=== PATIENT | female | born 1960 | race Caucasian/White ===

== ENCOUNTER 2016-08-25 11:01 | Inpatient (IN) | payer MEDICARE, SELFPAY ==
[2016-08-14 14:01] LABS: BASOPHILS 0.2 %; BASOPHILS ABSOLUTE 0.01 10/3/uL (0.0-0.16); EOSINOPHILS 7.1 %; EOSINOPHILS ABSOLUTE 0.35 10/3/uL (0.0-0.53); HEMATOCRIT 33.3 % (36.0-48.0); HEMOGLOBIN 10.3 g/dL (12.0-16.0); IMMATURE GRANULOCYTES 0.2 %; IMMATURE GRANULOCYTES ABSOLUTE 0.01 10/3/uL (0.0-0.11); LYMPHOCYTES ABSOLUTE 1.09 10/3/uL (0.67-4.30); MANUAL DIFF NO %; MEAN CORPUS HGB CONC 30.9 g/dL (32.0-36.0); MEAN CORPUSCULAR HEMOGLOB 24.9 pg (26.0-34.0); MEAN CORPUSCULAR VOLUME 80.6 fL (80-100); MEAN PLATELET VOLUME 9.2 fL (9.2-13.0); MONOCYTES 7.3 %; MONOCYTES ABSOLUTE 0.36 10/3/uL (0.21-1.20); NEUTROPHILS 63.2 %; NEUTROPHILS ABSOLUTE 3.13 10/3/uL (2.02-8.40); PLATELET COUNT 257 10/3/uL (150-400); RBC DISTRIBUTION WIDTH 16.6 % (12.0-16.0); RED CELL COUNT 4.13 10/6/uL (4.0-5.6)
[2016-08-14 14:11] LABS: BUN (BLOOD UREA NITROGEN) 8 MG/DL (6-23); CALCIUM, SERUM 9.1 MG/DL (8.5-10.4); CHLORIDE, SERUM 102 MMOL/L (96-112); CO2 (CARBON DIOXIDE) 29 MMOL/L (24-34); CREATININE 0.74 MG/DL (0.55-1.02); GFR AFRICAN AMERICAN 105 ML/MIN (>=60); GFR NON AFRICAN AMERICAN 91 ML/MIN (>=60); GLUCOSE, SERUM 105 MG/DL (60-99); POTASSIUM, SERUM 3.8 MMOL/L (3.5-5.3); SODIUM, SERUM 139 MMOL/L (135-148)
--- NOTE | ~2016-08-25 | OP ---
Record Of Operation [facility] [address] [place]. [address] NAME: YOGESH AUGUSTE OCTOBER : [birth year] STATUS : ADM IN PAT#: [id number] AGE: 55 ADM/REG DATE : 08/25/16 MR#: [id number] REPORT SERV DATE: 09/03/16 DICTATED BY: KAYY DENISE DATE: 09/03/16 REPORT STATUS : Draft TRANSCRIBED BY: CHIP DATE: 09/03/16 DATE OF PROCEDURE: 09/03/2016 PREOPERATIVE DIAGNOSIS: Necrosis of left axillary latissimus dorsi flap. POSTOPERATIVE DIAGNOSIS: Necrosis of left axillary latissimus dorsi flap. PROCEDURE: 1. Excisional debridement of skin, subcutaneous tissue, and muscle of the latissimus dorsi flap. 2. Placement of negative pressure wound dressing to left axilla. SURGEON: Kayy Denise M.D. RESIDENT SURGEON: Eulogio Sylvester. ANESTHESIA: General endotracheal. COMPLICATIONS: None. ESTIMATED BLOOD LOSS: Minimal. DESCRIPTION OF PROCEDURE: The patient was marked in the preoperative area. Consent was obtained. She was identified and taken to the operating room. She underwent general anesthesia. Her axilla and left thigh were prepped and draped in usual sterile fashion. A scalpel was used to excise the nonviable skin paddle from the latissimus dorsi flap. The underlying muscle was evaluated. The distal half of the muscle was necrotic, with no blood flow. This was excised with a scissor. The muscle was slowly excised until bleeding viable muscle and contractile muscle was encounter more proximally. Cultures were obtained and the wound was irrigated copiously with Hibiclens solution. Next, the remaining latissimus muscle was sutured to the deltoid muscle to provide coverage over the axillary vessels. A medium sized wound VAC sponge was then placed into the wound bed, covered with occlusive dressing, placed to suction, with good seal and no leak. She tolerated the procedure well. She has extubated and transferred to the recovery area. She will then return to her hospital bed, and we will undergo VAC change in approximately 48 to 72 hours. JOSY/CHIP Kayy Denise M.D. / [id number] CC: Record Of Operation [address] [place]. [address] NAME: YOGESH AUGUSTE OCTOBER : [birth year] STATUS : ADM IN PAT#: [id number] AGE: 55 ADM/REG DATE : 08/25/16 MR#: [id number] REPORT SERV DATE: 09/03/16 DICTATED BY: KAYY DENISE DATE: 09/03/16 REPORT STATUS : Draft TRANSCRIBED BY: MODL DATE: 09/03/16 Stanton Dominguez M.D. SELF,DANIA SAMANIEGO
--- NOTE | ~2016-08-25 | OP ---
Record Of Operation [facility] [address] [place]. [address] NAME: YOGESH AUGUSTE OCTOBER : [birth year] STATUS : ADM IN PAT#: [id number] AGE: 55 ADM/REG DATE : 08/25/16 MR#: [id number] REPORT SERV DATE: 08/25/16 DICTATED BY: STANTON DOMINGUEZ DATE: 08/25/16 REPORT STATUS : Draft TRANSCRIBED BY: MODL DATE: 08/25/16 DATE OF PROCEDURE: 08/25/2016 PREOPERATIVE DIAGNOSIS: Recurrent left breast cancer. POSTOPERATIVE DIAGNOSES: 1. Recurrent left breast cancer. 2. Local invasion surrounding the left axillary vein. Evidence of invasion into the left pectoralis muscle and latissimus dorsi. OPERATION PERFORMED: Wide local resection, local recurrence left breast cancer with resection of portion of latissimus dorsi and pectoralis muscle. SURGEON: Stanton Dominguez M.D. ANESTHESIA: General. ESTIMATED BLOOD LOSS: Less than 50 mL. IV FLUIDS: Adequate. INTRAOPERATIVE FINDINGS: Large locally invasive cancer. We were able to get around, what we felt to be was, grossly clear skin margins; however, the tumor was traced back to the proximal left axillary vein and appeared to be surrounding it. We attempted to dissect this off and did not feel like we could adequately obtain clear margins. Therefore, a small portion of the tumor was left surrounding the left axillary vein. DESCRIPTION OF OPERATION: After appropriate sedation, the patient was prepped and draped in proper sterile fashion. A wide incision around the skin of the fungating lesion was performed. We then dissected subcutaneously down to the pectoralis muscle and then came around inferiorly along the serratus and latissimus dorsi muscle. The tumor was then taken off the chest wall including a portion of the pectoralis muscle. We continued our dissection inferiorly and taking some latissimus as well as serratus anterior. This was traced up till we got to the left axillary vein. Once we got to the left axillary vein, there was approximately 2 x 2 cm area of tumor going circumferentially around the vein and into the brachial plexus. We did note as we made our dissection that the, what appeared to be, thoracodorsal nerve was entering the tumor itself. This was transected and tied off with a 3-0 Vicryl suture. At this point, we attempted to seize any of this tissue off the axillary vein and we were unsuccessful. I did not feel like we could obtain clear margins. At this point, we terminated any further resection. A KCI white sponge was placed over the axillary vein and then a black sponge was placed into the wound cavity and dressings were applied. The patient was taken to recovery room in satisfactory condition. /MODL Record Of Operation [address] [address] NAME: YOGESH AUGUSTE OCTOBER : [birth year] STATUS : ADM IN [facility]#: [id number] AGE: 55 ADM/REG DATE : 08/25/16 MR#: [id number] REPORT SERV DATE: 08/25/16 DICTATED BY: STANTON DOMINGUEZ DATE: 08/25/16 REPORT STATUS : Draft TRANSCRIBED BY: CHIP DATE: 08/25/16 Stanton Dominguez M.D. / [id number] CC: Joni Kruse M.D.
--- NOTE | ~2016-08-25 | OP ---
Record Of Operation [facility] [address] [place]. [address] NAME: YOGESH AUGUSTE OCTOBER : [birth year] STATUS : ADM IN PAT#: [id number] AGE: 55 ADM/REG DATE : 08/25/16 MR#: [id number] REPORT SERV DATE: 09/02/16 DICTATED BY: KAYY DENISE DATE: 09/02/16 REPORT STATUS : Draft TRANSCRIBED BY: MODElissa DATE: 09/02/16 DATE OF PROCEDURE: 09/01/2016 PREOPERATIVE DIAGNOSES: 1. History of recurrent breast cancer in left axilla. 2. History of radiation therapy to the left axilla. 3. Left axillary wound. POSTOPERATIVE DIAGNOSES: 1. History of recurrent breast cancer in left axilla. 2. History of radiation therapy to the left axilla. 3. Left axillary wound. PROCEDURE PERFORMED: Closure of left axillary wound with left latissimus dorsi myocutaneous flap. RESIDENTS: 1. Clyde Perez. 2. Eulogio Díaz. ANESTHESIA: General endotracheal. COMPLICATIONS: None. ESTIMATED BLOOD LOSS: 15 mL. INDICATION FOR PROCEDURE: The patient is a 55-year-old female with history of breast cancer. She underwent a left mastectomy and radiation therapy. She developed a recurrence in the left axilla, which was resected by Dr. Dominguez. She is appropriate now for latissimus flap to close the defect and provide coverage over the axillary vessels. DESCRIPTION OF PROCEDURE: The patient was marked in the preoperative area. Consent was obtained. The risks of the procedure, including but not limited to, infection, bleeding, scarring, hematoma or seroma formation, delayed wound healing, wound dehiscence, and complete or partial flap failure were discussed. All of her questions were answered. She agreed to proceed. She was taken operating room and underwent general anesthesia. She was placed on a beanbag and padded appropriately. She was placed in the lateral decubitus position with the left side up. A latissimus dorsi myocutaneous flap was designed including a skin island. The skin island was incised with a scalpel. Electrocautery was used to dissect through the soft tissues. The skin and adipose tissue were elevated over the body of the latissimus muscle leaving the cutaneous portion attached. The myocutaneous flap was then elevated from the chest wall starting anteriorly and it was released from its chest wall attachments. Notably, there are some indications of radiation damage and fibrosis to the anterior part of the latissimus muscle extending up into the axillary area. The flap, however, was fully mobilized and released from all of its attachments along the chest wall. The thoracodorsal pedicle was not intentionally identified. Once the flap was fully Record Of Operation [address] [place]. [address] NAME: YOGESH AUGUSTE OCTOBER : [birth year] STATUS : ADM IN PAT#: [id number] AGE: 55 ADM/REG DATE : 08/25/16 MR#: [id number] REPORT SERV DATE: 09/02/16 DICTATED BY: KAYY DENISE DATE: 09/02/16 REPORT STATUS : Draft TRANSCRIBED BY: CHIP DATE: 09/02/16 mobilized, a tunnel was created to the left axillary deflect. The flap was passed through this tunnel and rotated to avoid any pressure, kinking, or compression. A 15 round Joon drain was placed at the back and a 15 round Joon drain was placed at the axillary area and secured with sutures. The back wound was irrigated with Hibiclens solution. Cautery was used for hemostasis. It was closed in 3 layers with deep fascia reapproximation with Vicryl sutures, the dermis was closed with Monocryl sutures, and the skin was closed with a running subcuticular Monocryl suture. Dermabond was applied. Next, the axillary wound was irrigated with saline and Hibiclens solution. The muscle flap was then inset by suturing the muscle to completely cover the defect. The skin island was then inset to the skin edges of the defect using Monocryl sutures and lora. The drains were placed to bulb suction. Sterile dressing was applied. The patient tolerated the procedure well. She was extubated and transferred to the recovery area. She will return to her hospital bed for pain control and monitoring. JOSY/CHIP Kayy Denise M.D. / [id number] CC: Stanton Dominguez M.D. SELF,DANIA SAMANIEGO
--- NOTE | ~2016-08-25 | DS ---
Discharge Summary [facility] [address] [place]. [address] NAME: YOGESH AUGUSTE OCTOBER : 58 STATUS : DIS IN PAT#: [id number] AGE: 55 ADM/REG DATE : 08/25/16 MR#: [id number] REPORT SERV DATE: 09/25/16 DICTATED BY: STANTON DOMINGUEZ DATE: 09/24/16 REPORT STATUS : Draft TRANSCRIBED BY: CHIP DATE: 09/24/16 Data Collection from hospitalization DISCHARGE DIAGNOSIS(ES): 1. Recurrent left breast cancer. 2. Local invasion surrounding the left axillary vein and evidence of invasion into the left pectoralis muscle and latissimus dorsi. 3. Former tobacco. 4. Fibromyalgia. 5. Anemia. 6. Anxiety and depression. 7. Irritable bowel syndrome. CONSULTATIONS: Aris Denise M.D. PROCEDURES PERFORMED: 1. Wide local resection, local recurrence, left breast cancer with resection of portion of latissimus dorsi and pectoralis muscle, 08/25/2016. 2. Closure of left axillary wound with left latissimus dorsi myocutaneous flap, 09/01/2016. 3. Excisional debridement of skin, subcutaneous tissue, and muscle of the latissimus dorsi flap, placement of negative pressure wound dressing to the left axilla, 09/03/2016. 4. Vacuum closure system change, 09/05/2016. 5. Negative pressure wound dressing change to the left axilla, 09/08/2016. PATHOLOGY: Soft tissue and skin left chest wall excision-recurrent high-grade invasive ductal carcinoma. Deep and inferior margins involved, predictive/prognostic factors. Estrogen receptors-negative (0% of tumor cell staining), progesterone receptors-negative (0% of tumor cell staining), [id number] over expressed (score 0), soft tissue deep superior margin biopsy-positive for recurrent invasive ductal carcinoma, soft tissue biopsy deep inferior margin-positive for recurrent invasive ductal carcinoma, soft tissue biopsy medial inferior margin-positive for recurrent invasive ductal carcinoma. MEDICATIONS: Ventolin two puffs via inhaler every four hours as needed, Goody's Extra Strength powder packet one powder every six hours as needed, Arcadia 7.5/325 one to two tablets every six hours as needed, and Percocet 5/325 one to two tablets every four hours as needed. CONDITION AT DISCHARGE: Stable. DISPOSITION: The patient was discharged home to be followed by home health care on a regular diet with activities as instructed. She would follow up with Dr. Aris Denise on 09/19/[address] Stanton Dominguez on 09/24/2016. She would follow up with her primary care physician as needed. HOSPITAL COURSE: This is a 55-year-old female who has a history of breast cancer. She had undergone a left mastectomy and radiation therapy. She developed a recurrence of the left breast cancer. Treatment options were discussed, and it was elected to proceed with Discharge Summary [place] [id number] [facility] [place]. [address] NAME: YOGESH AUGUSTE OCTOBER : [birth year] STATUS : DIS IN PAT#: [id number] AGE: 55 ADM/REG DATE : 08/25/16 MR#: [id number] REPORT SERV DATE: 09/25/16 DICTATED BY: STANTON DOMINGUEZ DATE: 09/24/16 REPORT STATUS : Draft TRANSCRIBED BY: MODL DATE: 09/24/16 surgical intervention. She was admitted to the hospital at this time for further evaluation and treatment. Upon admission, she was taken to the operating room where she underwent the above-mentioned procedure. She tolerated this well. There were no complications. On postop day #1, she was awake and alert. She did complain of some incisional pain. Wound VAC was in place. Positive margins were discussed with the patient. It was felt that she would need plastics coverage of the wound on 08/27/2016. She was doing well. She continued to complain of pain. She was sitting comfortably in bed. She was tolerating oral intake. We encouraged her to ambulate. The D[employer]ER was going to be stopped. The patient was seen by Dr. Aris Denise. The patient had undergone partial excision of a left axillary recurrence of breast cancer. This was not fully resectable. The wound VAC was intact. Plans were made for latissimus dorsi flap to be performed. On 08/28/2016, she was doing well. She did have some edema in her arm. The arm was to be elevated. Plans were being made to proceed with further surgical intervention. On 09/01/2016, the arm was edematous but was unchanged. It was felt that the patient would need to undergo closure of the left axillary wound with left latissimus dorsi myocutaneous flap. She was taken to the operating room by Dr. Denise where she underwent the above-mentioned procedure. She tolerated this well, and there were no complications. On 09/02/2016, she was awake and alert. Her pain was controlled. She was in no acute distress. The patient developed some necrosis of the left axillary latissimus dorsi flap. It was felt that she would need excisional debridement and placement of negative pressure wound dressing to the left axilla. On 09/03/2016, she was taken to the operating room by Dr. Aris Denise where she underwent the above-mentioned procedure. She tolerated this well. There were no complications. The following day, she was doing well. The wound VAC was in place in the left axilla. On 09/05/2016, she underwent vacuum closure system change. On 09/06/2016, left arm swelling was minimal. She was doing well. She had no new complaints. The wound VAC remained in place. She was going to be taken back to the operating room for wound VAC change. Antibiotics were continued. On 09/08/2016, she was taken to the operating room where she underwent the above-mentioned procedure. She tolerated this well. There were no complications. Over the next couple of days, the wound VAC remained intact. She had no complaints. Discharge planning was performed. On 09/10/2016, discharge instructions were given. Due to her improved and stable condition, she was discharged home to be followed by home health care with the above- stated instructions. Information collected by: Darshana Velazquez I submit the above information as my discharge summary. ANALI/CHIP Stanton Dominguez M.D. / [id number] Discharge Summary [address] [address] NAME: YOGESH AUGUSTE OCTOBER : [birth year] STATUS : DIS IN PAT#: [id number] AGE: 55 ADM/REG DATE : 08/25/16 MR#: [id number] REPORT SERV DATE: 09/25/16 DICTATED BY: STANTON DOMINGUEZ DATE: 09/24/16 REPORT STATUS : Draft TRANSCRIBED BY: CHIP DATE: 09/24/16 CC: Amy Tyson M.D.
--- NOTE | ~2016-08-25 | OP ---
Record Of Operation [facility] [address] [address] NAME: YOGESH AUGUSTE OCTOBER : [birth year] STATUS : ADM IN [facility]#: [id number] AGE: 55 ADM/REG DATE : 08/25/16 MR#: [id number] REPORT SERV DATE: 09/06/16 DICTATED BY: LUIS PARSONS DATE: 09/05/16 REPORT STATUS : Draft TRANSCRIBED BY: CHIP DATE: 09/05/16 DATE OF PROCEDURE: 09/05/2016 PREOPERATIVE DIAGNOSIS: Left axillary wound. POSTOPERATIVE DIAGNOSIS: Left axillary wound. PROCEDURE: Vacuum closure system change. INDICATIONS AND FINDINGS OF THE PROCEDURE: This 55-year-old female has a complex left axillary wound requiring vacuum closure system. She is appropriate for change. DETAILS OF THE PROCEDURE: The patient was brought to the operating room, placed in the right lateral decubitus position, anesthetized in the usual fashion. The vacuum closure system was changed in the usual manner. No debridement was performed. Soft tissues were noted to be granulating. She was then dressed and remanded to the recovery room in stable condition. All sponge and needle counts were correct. RODERICK/CHIP Luis Parsons M.D. / [id number]
--- NOTE | ~2016-08-25 | OP ---
Record Of Operation [facility] [address] [place]. [address] NAME: YOGESH AUGUSTE OCTOBER : 58 STATUS : ADM IN [facility]#: [id number] AGE: 55 ADM/REG DATE : 08/25/16 MR#: [id number] REPORT SERV DATE: 09/09/16 DICTATED BY: KAYY DENISE DATE: 09/09/16 REPORT STATUS : Draft TRANSCRIBED BY: CHIP DATE: 09/09/16 DATE OF PROCEDURE: 09/08/2016 PREOPERATIVE DIAGNOSES: 1. History of breast cancer, metastatic. 2. Left axillary wound. POSTOPERATIVE DIAGNOSES: 1. History of breast cancer, metastatic. 2. Left axillary wound. PROCEDURE: Negative pressure wound dressing change to the left axilla. ANESTHESIA: Intravenous sedation. COMPLICATIONS: None. DESCRIPTION OF PROCEDURE: The patient was taken to the operating room. She underwent anesthesia. Her left arm and axilla were prepped and draped in usual sterile fashion. A negative pressure dressing that was previously placed was removed. The wound was inspected. It is beginning to granulate, but the previous remnants of the latissimus flap are not yet adherent, therefore, I do not feel it is ready for split-thickness skin grafting. Some fibrinous material was debrided and was irrigated with saline. A VAC sponge was cut to the appropriate size for the defect, placed into the wound, covered with occlusive dressing, and placed to suction. There was a good seal and no leak. The patient tolerated the procedure well. She was then transferred to the recovery area and returned to her hospital floor bed. JOSY/CHIP Kayy Denise M.D. / [id number] CC: Amy Tyson THOMAS [place]
[~2016-08-25 11:01] MED LIST: ADIPEX-P37.5 MG OR; GOODY'S EX-STR1 EAC1 PO; NORCO1 TA2 PO; T3 PO; VENTOLIN HFA INH; ZANAFLEX 4 MG TA4 MG PO
[2016-08-26 05:36] LABS: BASOPHILS 0.1 %; BASOPHILS ABSOLUTE 0.01 10/3/uL (0.0-0.16); EOSINOPHILS 0.5 %; EOSINOPHILS ABSOLUTE 0.04 10/3/uL (0.0-0.53); HEMOGLOBIN 8.6 g/dL (12.0-16.0); LYMPHOCYTES 9.3 %; LYMPHOCYTES ABSOLUTE 0.69 10/3/uL (0.67-4.30); MEAN CORPUS HGB CONC 31.6 g/dL (32.0-36.0); MEAN CORPUSCULAR HEMOGLOB 25.4 pg (26.0-34.0); MEAN CORPUSCULAR VOLUME 80.5 fL (80-100); MONOCYTES 8.6 %; MONOCYTES ABSOLUTE 0.64 10/3/uL (0.21-1.20); NEUTROPHILS 81.5 %; NEUTROPHILS ABSOLUTE 6.04 10/3/uL (2.02-8.40); PLATELET COUNT 184 10/3/uL (150-400); RBC DISTRIBUTION WIDTH 16.9 % (12.0-16.0); RED CELL COUNT 3.38 10/6/uL (4.0-5.6)
[2016-08-26 05:37] LABS: HEMATOCRIT 27.2 % (36.0-48.0); MANUAL DIFF NO %; WHITE BLOOD CELLS 7.4 10/3/uL (4.5-10.5)
[2016-09-01 07:05] LABS: BASOPHILS 0.2 %; BASOPHILS ABSOLUTE 0.01 10/3/uL (0.0-0.16); EOSINOPHILS 2.7 %; EOSINOPHILS ABSOLUTE 0.16 10/3/uL (0.0-0.53); HEMATOCRIT 27.4 % (36.0-48.0); HEMOGLOBIN 8.6 g/dL (12.0-16.0); IMMATURE GRANULOCYTES 0.5 %; IMMATURE GRANULOCYTES ABSOLUTE 0.03 10/3/uL (0.0-0.11); LYMPHOCYTES 12.5 %; LYMPHOCYTES ABSOLUTE 0.75 10/3/uL (0.67-4.30); MEAN CORPUS HGB CONC 31.4 g/dL (32.0-36.0); MEAN CORPUSCULAR VOLUME 79.7 fL (80-100); MEAN PLATELET VOLUME 9.1 fL (9.2-13.0); MONOCYTES 9.3 %; MONOCYTES ABSOLUTE 0.56 10/3/uL (0.21-1.20); NEUTROPHILS 74.8 %; RBC DISTRIBUTION WIDTH 16.8 % (12.0-16.0); RED CELL COUNT 3.44 10/6/uL (4.0-5.6)
[2016-09-01 07:11] LABS: MANUAL DIFF NO %; PLATELET COUNT 277 10/3/uL (150-400)
[2016-09-01 07:26] LABS: BUN (BLOOD UREA NITROGEN) 9 MG/DL (6-23); CALCIUM, SERUM 9.4 MG/DL (8.5-10.4); CHLORIDE, SERUM 101 MMOL/L (96-112); CO2 (CARBON DIOXIDE) 29 MMOL/L (24-34); GFR AFRICAN AMERICAN 96 ML/MIN (>=60); GFR NON AFRICAN AMERICAN 82 ML/MIN (>=60); GLUCOSE, SERUM 102 MG/DL (60-99); PHOSPHORUS, SERUM 3.8 MG/DL (2.5-4.5); POTASSIUM, SERUM 4.1 MMOL/L (3.5-5.3); SODIUM, SERUM 137 MMOL/L (135-148)
[2016-09-03 15:33] LABS: HEMATOCRIT 25.6 % (36.0-48.0); HEMOGLOBIN 8.2 g/dL (12.0-16.0)
[2016-09-08 08:44] LABS: BASOPHILS 0.5 %; BASOPHILS ABSOLUTE 0.04 10/3/uL (0.0-0.16); EOSINOPHILS 4.2 %; EOSINOPHILS ABSOLUTE 0.31 10/3/uL (0.0-0.53); HEMATOCRIT 27.5 % (36.0-48.0); HEMOGLOBIN 8.5 g/dL (12.0-16.0); IMMATURE GRANULOCYTES 2.2 %; IMMATURE GRANULOCYTES ABSOLUTE 0.16 10/3/uL (0.0-0.11); LYMPHOCYTES 14.1 %; LYMPHOCYTES ABSOLUTE 1.04 10/3/uL (0.67-4.30); MANUAL DIFF NO %; MEAN CORPUS HGB CONC 30.9 g/dL (32.0-36.0); MEAN CORPUSCULAR HEMOGLOB 24.7 pg (26.0-34.0); MEAN CORPUSCULAR VOLUME 79.9 fL (80-100); MEAN PLATELET VOLUME 9.3 fL (9.2-13.0); MONOCYTES 5.6 %; MONOCYTES ABSOLUTE 0.41 10/3/uL (0.21-1.20); NEUTROPHILS 73.4 %; NEUTROPHILS ABSOLUTE 5.39 10/3/uL (2.02-8.40); PLATELET COUNT 425 10/3/uL (150-400); RBC DISTRIBUTION WIDTH 17.5 % (12.0-16.0); RED CELL COUNT 3.44 10/6/uL (4.0-5.6); WHITE BLOOD CELLS 7.4 10/3/uL (4.5-10.5)
[2016-09-08 08:53] LABS: BUN (BLOOD UREA NITROGEN) 12 MG/DL (6-23); CALCIUM, SERUM 9.3 MG/DL (8.5-10.4); CHLORIDE, SERUM 105 MMOL/L (96-112); CO2 (CARBON DIOXIDE) 26 MMOL/L (24-34); CREATININE 0.86 MG/DL (0.55-1.02); GFR AFRICAN AMERICAN 88 ML/MIN (>=60); GFR NON AFRICAN AMERICAN 76 ML/MIN (>=60); GLUCOSE, SERUM 93 MG/DL (60-99); PHOSPHORUS, SERUM 3.7 MG/DL (2.5-4.5); POTASSIUM, SERUM 4.3 MMOL/L (3.5-5.3); SODIUM, SERUM 139 MMOL/L (135-148)
[2016-09-08 08:54] LABS: INTERNATIONAL NORMAL RATI 1.2 UNITS (-); PROTIME (NOT ORD) 14.7 SEC (12.0-14.5)
[2016-09-10] MEDS ORDERED: PCET PO (14:12)
[2016-11-04] MEDS ORDERED: COMP10B PO (09:16)
== END 2016-09-10 16:21 | disposition home or self-care (01) | DRG 580 ==
LOC: SDC/OF 11:01 → PACU 15:48 → 4SO 19:00
PROVIDERS: Anesthesiology; Colon & Rectal Surgery; Specialist; Surgery
PROC: 0KBG0ZZ Excision of Left Trunk Muscle, Open Approach (ICD-10-PCS; 2016-08-25)
PROC: 0KBJ0ZZ Excision of Left Thorax Muscle, Open Approach (ICD-10-PCS; 2016-08-25)
PROC: 0HBU0ZZ Excision of Left Breast, Open Approach (ICD-10-PCS; principal; 2016-08-25 12:45)
PROC: 0KXG0ZZ Transfer Left Trunk Muscle, Open Approach (ICD-10-PCS; 2016-09-01)
PROC: 0KBG0ZZ Excision of Left Trunk Muscle, Open Approach (ICD-10-PCS; 2016-09-03)
PROC: 2W09X6Z Change Pressure Dressing on Left Upper Extremity (ICD-10-PCS; 2016-09-05)
PROC: 2W09X6Z Change Pressure Dressing on Left Upper Extremity (ICD-10-PCS; 2016-09-08)
DX: C50.812 Malignant neoplasm of overlapping sites of left female breast (principal); C79.89 Secondary malignant neoplasm of other specified sites; T84.89XA Other specified complication of internal orthopedic prosthetic devices, implants and grafts, initial encounter; Z87.891 Personal history of nicotine dependence; Y83.2 Surgical operation with anastomosis, bypass or graft as the cause of abnormal reaction of the patient, or of later complication, without mention of misadventure at the time of the procedure; Z85.3 Personal history of malignant neoplasm of breast; M79.7 Fibromyalgia; Z90.12 Acquired absence of left breast and nipple; J44.9 Chronic obstructive pulmonary disease, unspecified; F41.9 Anxiety disorder, unspecified; F32.9 Major depressive disorder, single episode, unspecified; D64.9 Anemia, unspecified; Z92.21 Personal history of antineoplastic chemotherapy; Y92.239 Unspecified place in hospital as the place of occurrence of the external cause; Z92.3 Personal history of irradiation; K58.9 Irritable bowel syndrome, unspecified; G89.29 Other chronic pain; M54.9 Dorsalgia, unspecified
CPT/HCPCS: 36415; 80048; 83735; 84100; 85014; 85018; 85025; 85610; 85730; 86850; 86900; 86901; 86920; 87015; 87070; 87075; 87077; 87102; 87116; 87186; 87205; 88305; 88307; 88309; 88331; 88360; 93005; 94640; A9270-GY; C1769; J0690; J1170; J1200; J1885; J2250; J2270; J2370; J2405; J2543; J2710; J3010